=== PATIENT | male | born 1930 | race Caucasian/White ===

== ENCOUNTER 2016-06-02 08:21 | Inpatient (IN) | payer MEDICARE, BC ==
[~2016-06-02 08:21] MED LIST: ADULT LOW DOSE81 M1 PO; ANTACID ANTI-G355 ML PO; ANTI-DIARRHEA2 MG PO; ASPIRIN325 MG PO; ATENOLOL100 M1 PO; ATENOLOL50 MG PO; BROVANA15 MCG/22 INH; CALCIUM 600 +1 EA17 PO; CATAPRES0.2 M1 PO; CELEXA20 M2 PO; CHLORTHALIDONE25 M1 PO; CIPRO500 M2 PO; COLACE100 M1 PO; COLCRYS0.6 M1 PO; CRANBERRY400 M3 PO; CYANOCOBAL1000 MCG/3 IM; DOK100 M2 PO; DUONEB; FLOMAX0.4 M1 PO; FOLIC ACID1 M1 PO; FOSAMAX70 M1 PO; FOSINOPRIL SODI PO; FOSINOPRIL SODI20 MG PO; GLUCOPHAGE XR500 M1 PO; GLUCOPHAGE500 MG PO; H PO; HYDRALAZINE HCL50 M1 PO; HYDROCODON-ACE1 EA16 PO; IMDUR30 MG PO; INJECTAFER750 MG/15 IV; IPRAT-ALBUT 0.5-3 ML IH; IPRAT-ALBUT 0.5-3 ML INH; KEFLEX500 M4 PO; LABETALOL HCL200 M1 PO; LASIX40 M1 PO; LEVAQUIN750 M1 PO; LEVOTHROID175 MCG PO; LEVOTHYROXINE175 MCG PO; LIPITOR20 MG PO; LORTAB 5-325 M1 EAC1 PO; MAPAP325 M2 PO; MELOXICAM7.5 M1 PO; METFORMIN HCL500 MG PO; METHOTREXATE2.5 M1 PO; MILK OF MA2400 MG/10 PO; MILK OF MAGNESIA PO; MUCINEX600 M1 PO; NORCO 5-325 TA1 EACH PO; NORVASC10 MG PO; POLYETHYLENE GLY1 G1 PO; PREDNISONE10 M1 PO; PREDNISONE10 MG PO; PREDNISONE2.5 M1 PO; PULMICORT0.5 MG/22 IH; PULMICORT0.5 MG/22 INH; SENEXON-S TABL1 EAC1 PO; SENEXON8.6 M1 PO; SENOKOT-S TABLE1 TAB PO; SIMVASTATIN20 M1 PO; SIMVASTATIN20 MG PO; SYNTHROID175 MC1 PO; TRANDATE PO; TRIPLE ANTIBIO1 EACH TP; TYLENOL325 M2 PO; VITAMIN B12 IM; VITAMIN D2000 UNI1 PO; VITAMIN E; VITAMIN E PO; VITAMIN E400 UNI1 PO; VITAMIN E400 UNI5 PO; XARELTO15 M1 PO; XARELTO20 M1 PO; ZESTORETIC 20-1 EAC3 PO
[2016-06-02] MEDS ORDERED: BAZA PROTECT C142 GM TOP (08:32)
[2016-06-02] MEDS ORDERED: KEFLEX500 M4 PO (08:36)
[2016-06-02] MEDS ORDERED: OXYGEN INH (08:47)
[2016-06-02 09:16] LABS: BASO % 0.2 % (0-2); EOS % 1.3 % (0-7); EOSINOPHIL ABSOLUTE COUNT 0.2 tho/cmm (0.0-0.7); HCT-HEMATOCRIT 39.2 % (36.0-53.5); HGB-HEMOGLOBIN 12.9 gm/dl (13.5-17.0); IMMATURE GRANULOCYTES ABSOLUTE 0.05 tho/cmm (0-0.03); IMMATURE GRANULOCYTES PERCENT 0.3 % (0-0.3); LYMPH % 2.9 % (20-45); LYMPH ABSOLUTE COUNT 0.4 tho/cmm (0.8-4.5); MCHC MEAN CORPUSCULAR HGB CONC 32.9 % (32.0-36.0); MCV (MEAN CELL VOLUME) 109.5 fl (82.0-96.0); MONO % 3.4 % (0-12); MONOCYTE ABSOLUTE COUNT 0.5 tho/cmm (0.0-1.2); NEUTROPHIL ABSOLUTE COUNT 14.1 tho/cmm (1.6-8.0); NEUTROPHIL-AUTOMATED 14.1 tho/cmm (1.6-8.0); NEUTROPHILS % 91.9 % (40-80); PLATELET COUNT 158 tho/cmm (150-450); RED BLOOD COUNT 3.58 mil/cmm (4.40-5.70); RED CELL DISTRIBUTION WIDTH 15.4 % (12.4-16.4); WHITE BLOOD COUNT 15.3 tho/cmm (4.0-10.0)
[2016-06-02 09:33] LABS: ANION GAP 9 mmol/L (0-20); BLOOD UREA NITROGEN 42 mg/dl (6-24); CALCIUM 9.7 mg/dl (8.5-10.5); CARBON DIOXIDE-VENOUS 36 mmol/L (22-32); CHLORIDE 99 mmol/l (96-110); GLUCOSE 171 mg/dL (70-110); POTASSIUM 4.4 mmol/L (3.7-5.1); SODIUM 140 mmol/L (135-145); eGFR VALUE FOR BLACK 36 mL/Min
[2016-06-02 09:39] LABS: URINE APPEARANCE CLEAR; URINE BILIRUBIN NEGATIVE (NEG); URINE BLOOD NEGATIVE (NEG); URINE COLOR YELLOW; URINE GLUCOSE (UA) NEGATIVE (NEG); URINE KETONE NEGATIVE (NEG); URINE LEUKOCYTE ESTERASE POSITIVE (NEG); URINE NITRITE NEGATIVE (NEG); URINE PROTEIN NEGATIVE (NEG)
[2016-06-02 10:03] LABS: URINE WBC 0-3 /[HPF] (0-5)
[2016-06-02 10:04] LABS: URINE BACTERIA 1+; URINE EPITHELIAL CELLS 0-3 /[HPF] (0-10); URINE RBC 0-1 /[HPF] (0-5)
[2016-06-02 20:53] LABS: URINE TOTAL PROTEIN-RANDOM 20.4 mg/dl (<11.8)
[2016-06-02 22:08] LABS: URINE PRT/CR RATIO 0.16 Ratio (0.0-0.20)
[2016-06-03 02:13] LABS: URINE BILIRUBIN NEGATIVE (NEG); URINE BLOOD MODERATE (NEG); URINE GLUCOSE (UA) NEGATIVE (NEG); URINE KETONE NEGATIVE (NEG); URINE LEUKOCYTE ESTERASE NEGATIVE (NEG); URINE NITRITE NEGATIVE (NEG); URINE PROTEIN NEGATIVE (NEG)
[2016-06-03 02:14] LABS: URINE APPEARANCE CLEAR; URINE COLOR YELLOW
[2016-06-03 02:25] LABS: URINE EPITHELIAL CELLS RARE /[HPF] (0-10); URINE WBC RARE /[HPF] (0-5)
[2016-06-03 03:35] LABS: URINE PRT/CR RATIO 0.28 Ratio (0.0-0.20); URINE TOTAL PROTEIN-RANDOM 25.1 mg/dl (<11.8)
[2016-06-03 05:57] LABS: BASO % 0.3 % (0-2); EOS % 1.7 % (0-7); EOSINOPHIL ABSOLUTE COUNT 0.2 tho/cmm (0.0-0.7); HCT-HEMATOCRIT 35.4 % (36.0-53.5); HGB-HEMOGLOBIN 11.4 gm/dl (13.5-17.0); IMMATURE GRANULOCYTES ABSOLUTE 0.03 tho/cmm (0-0.03); IMMATURE GRANULOCYTES PERCENT 0.3 % (0-0.3); LYMPH % 7.3 % (20-45); LYMPH ABSOLUTE COUNT 0.7 tho/cmm (0.8-4.5); MCH (MEAN CORPUSCULAR HGB) 35.5 pg (28.0-32.0); MCHC MEAN CORPUSCULAR HGB CONC 32.2 % (32.0-36.0); MCV (MEAN CELL VOLUME) 110.3 fl (82.0-96.0); MEAN PLATELET VOLUME 10.3 cmc (9.4-12.4); MONO % 6.5 % (0-12); MONOCYTE ABSOLUTE COUNT 0.6 tho/cmm (0.0-1.2); NEUTROPHIL ABSOLUTE COUNT 7.8 tho/cmm (1.6-8.0); NEUTROPHIL-AUTOMATED 7.8 tho/cmm (1.6-8.0); NEUTROPHILS % 83.9 % (40-80); PLATELET COUNT 140 tho/cmm (150-450); RED BLOOD COUNT 3.21 mil/cmm (4.40-5.70); RED CELL DISTRIBUTION WIDTH 15.5 % (12.4-16.4); WHITE BLOOD COUNT 9.3 tho/cmm (4.0-10.0)
[2016-06-03 06:24] LABS: ALB/GLOB RATIO 0.8 (0.8-2.0); ALBUMIN 2.8 g/dl (3.5-5.0); ALKALINE PHOSPHATASE 50 U/L (33-138); ALT/SGPT 20 U/L (12-78); ANION GAP 8 mmol/L (0-20); AST/SGOT 16 U/L (10-40); BILIRUBIN,TOTAL 0.4 mg/dl (0.0-1.5); BLOOD UREA NITROGEN 37 mg/dl (6-24); CALCIUM 8.9 mg/dl (8.5-10.5); CARBON DIOXIDE-VENOUS 34 mmol/L (22-32); CHLORIDE 102 mmol/l (96-110); GLUCOSE 134 mg/dL (70-110); MAGNESIUM 1.7 mg/dl (1.3-2.6); PHOSPHOROUS 3.2 mg/dl (2.5-4.9); POTASSIUM 4.3 mmol/L (3.7-5.1); SODIUM 140 mmol/L (135-145); eGFR VALUE FOR BLACK 48 mL/Min
[2016-06-03 14:26] LABS: C-REACTIVE PROTEIN 15.1 mg/dl (0-0.9)
[2016-06-03 14:40] LABS: PROCALCITONIN 0.35 ng/ml (0.05-0.09)
[2016-06-04 06:11] LABS: BASO % 0.1 % (0-2); HCT-HEMATOCRIT 35.5 % (36.0-53.5); HGB-HEMOGLOBIN 11.5 gm/dl (13.5-17.0); IMMATURE GRANULOCYTES ABSOLUTE 0.02 tho/cmm (0-0.03); IMMATURE GRANULOCYTES PERCENT 0.3 % (0-0.3); LYMPH % 8.2 % (20-45); LYMPH ABSOLUTE COUNT 0.6 tho/cmm (0.8-4.5); MCH (MEAN CORPUSCULAR HGB) 35.4 pg (28.0-32.0); MCHC MEAN CORPUSCULAR HGB CONC 32.4 % (32.0-36.0); MCV (MEAN CELL VOLUME) 109.2 fl (82.0-96.0); MEAN PLATELET VOLUME 10.3 cmc (9.4-12.4); MONO % 3.2 % (0-12); MONOCYTE ABSOLUTE COUNT 0.3 tho/cmm (0.0-1.2); NEUTROPHIL ABSOLUTE COUNT 6.8 tho/cmm (1.6-8.0); NEUTROPHIL-AUTOMATED 6.8 tho/cmm (1.6-8.0); NEUTROPHILS % 88.2 % (40-80); PLATELET COUNT 140 tho/cmm (150-450); RED BLOOD COUNT 3.25 mil/cmm (4.40-5.70); RED CELL DISTRIBUTION WIDTH 15.2 % (12.4-16.4); WHITE BLOOD COUNT 7.8 tho/cmm (4.0-10.0)
[2016-06-04 06:50] LABS: ANION GAP 14 mmol/L (0-20); BLOOD UREA NITROGEN 39 mg/dl (6-24); C-REACTIVE PROTEIN 12.6 mg/dl (0-0.9); CALCIUM 8.4 mg/dl (8.5-10.5); CARBON DIOXIDE-VENOUS 30 mmol/L (22-32); CHLORIDE 100 mmol/l (96-110); CREATININE 1.67 mg/dl (0.60-1.30); GLUCOSE 195 mg/dL (70-110); POTASSIUM 3.9 mmol/L (3.7-5.1); SODIUM 140 mmol/L (135-145); eGFR VALUE FOR BLACK 42 mL/Min
[2016-06-05 06:29] LABS: HCT-HEMATOCRIT 36.8 % (36.0-53.5); HGB-HEMOGLOBIN 11.9 gm/dl (13.5-17.0); IMMATURE GRANULOCYTES ABSOLUTE 0.03 tho/cmm (0-0.03); IMMATURE GRANULOCYTES PERCENT 0.3 % (0-0.3); LYMPH % 10.3 % (20-45); MCH (MEAN CORPUSCULAR HGB) 35.2 pg (28.0-32.0); MCHC MEAN CORPUSCULAR HGB CONC 32.3 % (32.0-36.0); MCV (MEAN CELL VOLUME) 108.9 fl (82.0-96.0); MEAN PLATELET VOLUME 10.5 cmc (9.4-12.4); MONOCYTE ABSOLUTE COUNT 0.8 tho/cmm (0.0-1.2); NEUTROPHIL ABSOLUTE COUNT 8.1 tho/cmm (1.6-8.0); NEUTROPHIL-AUTOMATED 8.1 tho/cmm (1.6-8.0); NEUTROPHILS % 81.4 % (40-80); PLATELET COUNT 157 tho/cmm (150-450); RED BLOOD COUNT 3.38 mil/cmm (4.40-5.70); RED CELL DISTRIBUTION WIDTH 15.2 % (12.4-16.4)
[2016-06-05 06:42] LABS: ANION GAP 10 mmol/L (0-20); BLOOD UREA NITROGEN 43 mg/dl (6-24); CALCIUM 8.8 mg/dl (8.5-10.5); CARBON DIOXIDE-VENOUS 34 mmol/L (22-32); CHLORIDE 102 mmol/l (96-110); CREATININE 1.49 mg/dl (0.60-1.30); GLUCOSE 140 mg/dL (70-110); POTASSIUM 4.1 mmol/L (3.7-5.1); SODIUM 142 mmol/L (135-145); eGFR VALUE FOR BLACK 49 mL/Min
== END 2016-06-07 12:00 | DRG 988 ==
LOC: EDMED 08:21 → EMR2 12:49 → 5WF 15:10 → ORW 06-04 11:41 → 5WF 06-04 13:00
PROVIDERS: Emergency Medicine; ADMIT Family Medicine
PROC: 05H633Z Insertion of Infusion Device into Left Subclavian Vein, Percutaneous Approach (ICD-10-PCS; 2016-06-03)
PROC: 07B50ZX Excision of Right Axillary Lymphatic, Open Approach, Diagnostic (ICD-10-PCS; principal; 2016-06-04)
DX: J96.21 Acute and chronic respiratory failure with hypoxia (principal); N17.9 Acute kidney failure, unspecified; Z99.81 Dependence on supplemental oxygen; J09.X2 Influenza due to identified novel influenza A virus with other respiratory manifestations; D52.0 Dietary folate deficiency anemia; N39.0 Urinary tract infection, site not specified; J96.22 Acute and chronic respiratory failure with hypercapnia; I10 Essential (primary) hypertension; E11.9 Type 2 diabetes mellitus without complications; B96.5 Pseudomonas (aeruginosa) (mallei) (pseudomallei) as the cause of diseases classified elsewhere; E78.5 Hyperlipidemia, unspecified; E03.9 Hypothyroidism, unspecified; L72.0 Epidermal cyst; F17.210 Nicotine dependence, cigarettes, uncomplicated; M06.9 Rheumatoid arthritis, unspecified; E66.9 Obesity, unspecified; I25.10 Atherosclerotic heart disease of native coronary artery without angina pectoris; Z95.1 Presence of aortocoronary bypass graft; Z86.711 Personal history of pulmonary embolism; Z79.01 Long term (current) use of anticoagulants; Z68.32 Body mass index [BMI] 32.0-32.9, adult
CPT/HCPCS: C1751; G8987-GO-CL; G8988-GO-CK; J1652; J1815; J1956; J2250; J2543; J2920; J2930; J3370; J7030; J7050; J7512; J8610

== ENCOUNTER 2016-07-27 08:30 | Emergency (ER) | payer MEDICARE, BC ==
[~2016-07-27 08:30] MED LIST changes: +BAZA PROTECT C142 GM TOP; +OXYGEN INH
[2016-07-27 09:10] LABS: BASO % 0.3 % (0-2); EOS % 2.1 % (0-7); EOSINOPHIL ABSOLUTE COUNT 0.3 tho/cmm (0.0-0.7); HCT-HEMATOCRIT 36.5 % (36.0-53.5); HGB-HEMOGLOBIN 11.7 gm/dl (13.5-17.0); IMMATURE GRANULOCYTES ABSOLUTE 0.07 tho/cmm (0-0.03); IMMATURE GRANULOCYTES PERCENT 0.6 % (0-0.3); LYMPH % 13.5 % (20-45); LYMPH ABSOLUTE COUNT 1.7 tho/cmm (0.8-4.5); MCH (MEAN CORPUSCULAR HGB) 35.3 pg (28.0-32.0); MCHC MEAN CORPUSCULAR HGB CONC 32.1 % (32.0-36.0); MCV (MEAN CELL VOLUME) 110.3 fl (82.0-96.0); MONO % 6.2 % (0-12); MONOCYTE ABSOLUTE COUNT 0.8 tho/cmm (0.0-1.2); NEUTROPHIL ABSOLUTE COUNT 9.8 tho/cmm (1.6-8.0); NEUTROPHIL-AUTOMATED 9.8 tho/cmm (1.6-8.0); NEUTROPHILS % 77.3 % (40-80); PLATELET COUNT 173 tho/cmm (150-450); RED BLOOD COUNT 3.31 mil/cmm (4.40-5.70); RED CELL DISTRIBUTION WIDTH 16.9 % (12.4-16.4); WHITE BLOOD COUNT 12.7 tho/cmm (4.0-10.0)
[2016-07-27 09:24] LABS: ANION GAP 12 mmol/L (0-20); BLOOD UREA NITROGEN 42 mg/dl (6-24); CALCIUM 8.9 mg/dl (8.5-10.5); CARBON DIOXIDE-VENOUS 30 mmol/L (22-32); CHLORIDE 106 mmol/l (96-110); CREATININE 1.52 mg/dl (0.60-1.30); GLUCOSE 153 mg/dL (70-110); POTASSIUM 4.2 mmol/L (3.7-5.1); SODIUM 144 mmol/L (135-145); eGFR VALUE FOR BLACK 47 mL/Min
[2016-07-27] MEDS ORDERED: MIRALAX17 G2 PO (09:33)
[2016-07-27] MEDS ORDERED: PREDNISONE10 M1 PO (09:33)
[2016-07-27] MEDS ORDERED: SENNA-S TABLET1 EAC3 PO (09:34)
[2016-07-27] MEDS ORDERED: BISCOLAX10 MG PR (09:37)
[2016-07-27] MEDS ORDERED: CITRATE OF MAG300 M1 PO (09:38)
== END 2016-07-27 12:33 ==
LOC: EDMED 08:30
PROVIDERS: Emergency Medicine
DX: J44.1 Chronic obstructive pulmonary disease with (acute) exacerbation (principal); E11.22 Type 2 diabetes mellitus with diabetic chronic kidney disease; I12.9 Hypertensive chronic kidney disease with stage 1 through stage 4 chronic kidney disease, or unspecified chronic kidney disease; N18.9 Chronic kidney disease, unspecified; E78.5 Hyperlipidemia, unspecified; Z79.82 Long term (current) use of aspirin; Z79.890 Hormone replacement therapy; Z79.899 Other long term (current) drug therapy; F17.210 Nicotine dependence, cigarettes, uncomplicated
CPT/HCPCS: J2930